=== PATIENT | male | born 2000 | race Two or more races ===

== ENCOUNTER 2021-06-10 15:31 | Emergency (ER) | payer OTHER ==
[~2021-06-10] VITALS: Ht 177.8 cm; Wt 95.4 kg
[2021-06-10 15:42] VITALS: BP 151/84
--- NOTE | 2021-06-10 15:54 | PHYS DOC ---
General Adult EDM: Chief Complaint: SHOULDER INJURY HPI: HPI: Patient is a 21 year old male without pertinent past medical history who presents with pain over his left shoulder/clavicle. States that he was drinking last night and he slipped on his driveway. Fell with his left arm tucked into his side onto his shoulder. States he thinks he broke his clavicle. It is painful to move his shoulder. No numbness or tingling. No weakness. Denies head strike, LOC. No neck or back pain. Review of Systems: Review of Systems: Constitutional: Denies fever or chills Eyes: Denies change in visual acuity HENT: Denies nasal congestion or sore throat Respiratory: Denies cough or shortness of breath Cardiovascular: Denies chest pain or edema GI: Denies abdominal pain, nausea, vomiting, bloody stools or diarrhea : Denies dysuria Musculoskeletal: Left shoulder pain Integument: Denies rash Neurologic: Denies headache, focal weakness or sensory changes Endocrine: Denies polyuria or polydipsia Lymphatic: Denies swollen glands Psychiatric: Denies depression or anxiety Physical Exam: PE: Constitutional: Well developed, well nourished, no acute distress, non-toxic appearance. [] HENT: Normocephalic, atraumatic, Neck: Normal range of motion, no tenderness, supple, no stridor. [] Cardiovascular: Heart rate normal] Lungs & Thorax: normal work of breathing Skin: No overlying laceration or redness to the left shoulder. Extremities: Tenderness to palpation over left distal clavicle. No humeral head tenderness. Some mild scapular tenderness to palpation. Limited range of motion of the shoulder due to pain. Good range of motion at the elbow and wrist. Material Stress Tester strength intact. Sensation intact. Distal pulses 2+ and radial and ulnar pulse. Neurologic: Alert and oriented X 3, normal motor function, normal sensory function, no focal deficits noted. [] Psychologic: Affect normal, judgement normal, mood normal. [] EKG: EKG: [] Radiology/Procedures: Radiology/Procedures: [address] [address] IMAGING REPORT Signed PATIENT: KEIKO LIAO ACCOUNT: [id number] : 2000 LOCATION: ER AGE: 21 SEX: M EXAM STATUS: REG ER ORD. PHYSICIAN: KAREN COUGHLIN MD REASON: pain over distal clavicle after fall PROCEDURE: SHOULDER 2+V LEFT Left shoulder 3 views, left clavicle 2 views. HISTORY: Pain after a fall Left shoulder 3 views were taken of the left shoulder. There is not evidence of a fracture or glenohumeral dislocation. Left clavicle 2 views were taken of the left clavicle. There is minimal superior displacement of the distal clavicle a mild AC separation is possible. No other acute osseous abnormality is noted. IMPRESSION: 1. Possible mild AC separation left shoulder. 2. No clavicle fracture noted. 3. No fracture or dislocation left shoulder. Electronically signed by: Kyler Sousa MD (06/10/2021 4:06 PM) [facility] DICTATED AND SIGNED BY: KYLER SOUSA MD DATE: 06/10/21 1601 CC: KAREN COUGHLIN MD; PCP,NO ~MTH0 0 [] Heart Score: C/O Chest Pain: No Risk Factors: Risk Factors: DM, Current or recent (<one month) smoker, HTN, HLP, family history of CAD, obesity. Risk Scores: Score 0 - 3: 2.5% MACE over next 6 weeks - Discharge Home Score 4 - 6: 20.3% MACE over next 6 weeks - Admit for Clinical Observation Score 7 - 10: 72.7% MACE over next 6 weeks - Early Invasive Strategies Course & Med Decision Making: Course & Med Decision Making Pertinent Labs and Imaging studies reviewed. (See chart for details) Patient a 21-year-old male who presents with a left shoulder/clavicle pain after falling on his driveway last night while intoxicated. Denies headache, head strike, LOC. Does have tenderness over the distal portion of the clavicle. Neurovascular intact, although limited range of motion of the shoulder with abduction due to pain. Plain films of the clavicle and shoulder ordered. 1554 No fracture on x-rays. Likely AC joint separation given mechanism, exam, and imaging. Likely type I or III, will advise rest, ice sling, and outpatient follow up. 1632 Sharon Disclaimer: Sharon Disclaimer: This electronic medical record was generated, in whole or in part, using a voice recognition dictation system. Departure Departure: Impression: Primary Impression: Acromioclavicular joint separation Disposition: HOME / SELF CARE / HOMELESS Condition: STABLE Referrals: PCP,NO (PCP) Patient Instructions: Acromioclavicular Separation with Rehab-[facility] Additional Instructions: For pain tylenol and ibuprofen are best used on a schedule. Please alternate between the two. -Tylenol 1000 mg every 6 hours (do not exceed 4000 mg in one day) -Ibuprofen 400 mg every 6 hours. Take with food. Do not take for more than 1 week. Since you do not have a PCP, please call the number for the [facility] at [phone]. KAREN COUGHLIN MD Jun 10, 2021 15:54
--- NOTE | 2021-06-10 16:09 | RAD ---
Left shoulder 3 views, left clavicle 2 views. HISTORY: Pain after a fall Left shoulder 3 views were taken of the left shoulder. There is not evidence of a fracture or glenohumeral dislocat ion. Left clavicle 2 views were taken of the left clavicle. There is minimal superior displacement of the distal clavicl e a mild AC separation is possible. No other acute osseous abnormality is noted. IMPRESSION: 1. Possible mild AC separation left shoulder. 2. No clavicle fracture noted. 3. No fracture or dislocation left shoulder. Electronically signed by: Kyler Christianson MD (06/10/2021 4:06 PM) [facility]
== END 2021-06-10 16:49 | disposition home or self-care (01) ==
LOC: ER 15:31
DX: S43.102A Unspecified dislocation of left acromioclavicular joint, initial encounter (principal); W01.0XXA Fall on same level from slipping, tripping and stumbling without subsequent striking against object, initial encounter; Y93.89 Activity, other specified; Y92.89 Other specified places as the place of occurrence of the external cause; Y99.8 Other external cause status
CPT/HCPCS: 73000; 73030; 99284